=== PATIENT | male | born 1985 | race Caucasian/White ===

== ENCOUNTER 2019-07-09 10:53 | Emergency (ER) | payer SELFPAY ==
[2019-07-09 11:18] VITALS: BP 127/75; PULSE 88; RESP 16; TEMP 36.7; O2SAT 98; BMI 24.3
--- NOTE | 2019-07-09 11:43 | W.ED.GENADLT ---
HPI - General Adult General: Chief complaint: General Medical Stated complaint: Face pain Time Seen by Provider: 07/09/19 11:31 Source: patient Mode of arrival: ambulatory Limitations: no limitations History of Present Illness: HPI narrative: Patient comes in today with complaints of 2 weeks of right side sinus pain and pressure. Patient states that he had tried amoxicillin by taking 1 500 mg capsule twice a day for 3 days but did not notice any improvement. Patient appears well. Patient appears in mild to moderate discomfort. Patient denies any chronic medical problems. Patient does have a history of dental abscess that he reports is similar in pain but patient has had all his teeth removed at this time. Review of Systems General: Reports: 10 or more systems reviewed and unremarkable except in HPI and below ENMT: Reports: facial/sinus pain and other PFSH ED PFSH: Statuses (acute, chronic, etc) shown below reflect problem list status as previously entered and may not be historically accurate Social History Smoking and tobacco status: current every day smoker Physical Exam Const: COMMON NORMALS: no apparent distress and oriented x3 GENERAL APPEARANCE: cooperative HENMT: COMMON NORMALS: normocephalic, external ears normal, EAC's normal, TM's normal bilaterally and external nose normal HEAD & SCALP: normal to inspection and normocephalic FACE & SINUS: facial tenderness (right maxillary sinus area) NOSE: external nose normal GENERAL EAR: hearing not grossly impaired EXTERNAL EAR: Yes external ears normal EXTERNAL AUDITORY CANAL: EAC's normal TYMPANIC MEMBRANE: TM's normal bilaterally MOUTH: oral and palatal mucosa normal THROAT: posterior oropharynx normal Eye: COMMON NORMALS: PERRL and EOMs intact bilaterally PUPIL: Yes PERRL Neck/C-Spine: COMMON NORMALS: full ROM and no lymphadenopathy Lymph: LYMPHATIC: no lymphedema noted Chest: COMMONS NORMALS: inspection of chest normal and palpation of chest normal Resp: COMMON NORMALS: normal respiratory effort and clear to auscultation bilaterally AUSCULTATION: clear to auscultation bilaterally Cardio: COMMON NORMALS: regular rate and regular rhythm RATE: regular rate RHYTHM: regular rhythm GI: COMMON NORMALS: normal to inspection, nondistended, normoactive bowel sounds and non-tender : COMMON NORMALS: Yes no CVA tenderness BLADDER/KIDNEY EXAM: Yes no CVA tenderness Back/Pelvis: COMMON NORMALS: no CVA tenderness and thoracic and lumbar spine normal to inspection Extremity: COMMON NORMALS: normal to inspection GENERAL: No edema Neuro: COMMON NORMALS: oriented x3, moves all extremities and no focal motor deficits Psych: COMMON NORMALS: mental status grossly normal and cooperative Skin: COMMON NORMALS: no rashes or lesions noted GENERAL SKIN EXAM: no rashes or lesions noted Course Vital Signs: Vital signs: Vital Signs Temperature 98.0 F 07/09/19 11:18 Pulse Rate 88 07/09/19 11:18 Respiratory Rate 16 07/09/19 11:18 Blood Pressure 127/75 07/09/19 11:18 Pulse Oximetry 98 07/09/19 11:18 MDM - General Adult MDM Narrative: Medical decision making narrative: Patient comes in today for complaints of sinus pain. Patient appears well. Patient appears in no acute distress. Exam noted right side facial tenderness on palpation in the maxillary area. Patient has nasal mucosal edema. Posterior pharynx is pink and moist. No cervical lymphadenopathy is noted. Differential diagnosis includes migraine headache, sinusitis, otitis media, upper respiratory infection, rhinosinusitis, malingering. Patient will be treated with antibiotics for a sinus infection. Patient was also placed on Flonase for further treatment. Discussed the use of medications for pain with patient's report of understanding of care plan. Discharge Plan Discharge Patient Disposition: Home, Self-Care Clinical Impression: Rhinosinusitis Condition: Stable Prescriptions: New cefdinir 300 mg capsule 300 mg PO BID 10 Days Qty: 20 RF: 0 hydrocodone-acetaminophen 5-325 mg tablet 1 tab PO Q6H PRN (Reason: pain) Qty: 7 RF: 0 Flonase Allergy Relief 50 mcg/actuation spray,suspension 1 spray INTRANASAL BID Qty: 9.9 RF: 0 Discharge Orders: Discharge Order (Routine); Ordered 07/09/19 Ordered By: Daniel Hunter Discharge Diet: Usual diet Discharge Activity: Resume usual activity Patient Instructions: Acute Bacterial Rhinosinusitis (ED) Activity Restrictions/Additional Instructions: Drink plenty of fluids Use acetaminophen and ibuprofen to control pain Do not use more than 4 over the counter strength ibuprofen every 6 hours as needed for pain Do not use more than 2 extra strength acetaminophen every 6 hours as needed Use hydrocodone sparingly for pain Use ice or heat for further pain control Follow-up with primary care in one week for recheck Return to ER for high fever or uncontrolled pain. Discharge Date/Time: 07/09/19 11:57 Coding Level of Care Code ED Line O Scribe Operator for Rianna Brown
[2019-07-09 11:56] VITALS: BP 142/85; PULSE 75; RESP 16; O2SAT 97
== END 2019-07-09 11:57 | disposition home or self-care (01) ==
PROVIDERS: Emergency Provider Nurse Practitioner Family
DX: J32.9 Chronic sinusitis, unspecified (principal); F17.210 Nicotine dependence, cigarettes, uncomplicated
CPT/HCPCS: 99281; 99282

== ENCOUNTER 2019-07-18 15:56 | Emergency (ER) | payer SELFPAY ==
[2019-07-18 16:03] VITALS: BP 132/81; PULSE 90; RESP 16; TEMP 36.4; O2SAT 97; BMI 25.7
--- NOTE | 2019-07-18 16:18 | ED_ITS ---
Documented by User: JUANJOSE Portillo 07/18/19 16:29 HPI - General Adult General: Chief complaint: General Medical Stated complaint: FACE PAIN Time Seen by Provider: 07/18/19 16:16 Source: patient Mode of arrival: ambulatory Limitations: no limitations History of Present Illness: HPI narrative: Patient comes in today with complaints of right side sinus pain and pressure. Patient has had multiple dental abscesses in the past but is now edentulous and over the last 4 weeks he has had some persistent pain in the right side maxillary facial. Patient thought maybe he had developed a sinus infection but he states that the pain is very similar to when he had have a dental abscess. Patient appears well. Patient appears in moderate pain. Review of Systems General: Reports: 10 or more systems reviewed and unremarkable except in HPI a nd below ENMT: Reports: other (right facial pain) PFSH ED PFSH: Statuses (acute, chronic, etc) shown below reflect problem list status as previously entered and may not be historically accurate Social History Smoking and tobacco status: current every day smoker Physical Exam Const: COMMON NORMALS: no apparent distress and oriented x3 GENERAL APPEARANCE: cooperative HENMT: COMMON NORMALS: normocephalic, external ears normal, EAC's normal, TM's normal bilaterally and external nose normal HEAD & SCALP: normal to inspection and normocephalic FACE & SINUS: normal facial exam and sinus tenderness (right maxillary) NOSE: external nose normal GENERAL EAR: hearing not grossly impaired EXTERNAL EAR: Yes external ears normal EXTERNAL AUDITORY CANAL: EAC's normal TYMPANIC MEMBRANE: TM's normal bilaterally MOUTH: oral and palatal mucosa normal and other (edentulous) THROAT: posterior oropharynx normal Eye: COMMON NORMALS: PERRL and EOMs intact bilaterally PUPIL: Yes PERRL Neck/C-Spine: COMMON NORMALS: full ROM and no lymphadenopathy Lymph: LYMPHATIC: no lymphedema noted Chest: COMMONS NORMALS: inspection of chest normal and palpation of chest normal Resp: COMMON NORMALS: normal respiratory effort and clear to auscultation bilaterally AUSCULTATION: clear to auscultation bilaterally Cardio: COMMON NORMALS: regular rate and regular rhythm RATE: regular rate RHYTHM: regular rhythm GI: COMMON NORMALS: normal to inspection, nondistended, normoactive bowel sounds and non-tender : COMMON NORMALS: Yes no CVA tenderness BLADDER/KIDNEY EXAM: Yes no CVA tenderness Back/Pelvis: COMMON NORMALS: no CVA tenderness and thoracic and lumbar spine normal to inspection Extremity: COMMON NORMALS: normal to inspection GENERAL: No edema Neuro: COMMON NORMALS: oriented x3, moves all extremities and no focal motor deficits Psych: COMMON NORMALS: mental status grossly normal and cooperative Skin: COMMON NORMALS: no rashes or lesions noted GENERAL SKIN EXAM: no rashes or lesions noted Course Vital Signs: Vital signs: Vital Signs Temperature 98.3 F 07/18/19 16:27 Pulse Rate 85 07/18/19 16:27 Respiratory Rate 12 07/18/19 16:27 Blood Pressure 122/76 07/18/19 16:27 Pulse Oximetry 98 07/18/19 16:27 Discharge Plan Discharge Patient Disposition: Home, Self-Care Clinical Impression: Acute facial pain Condition: Stable Prescriptions: No Action cefdinir 300 mg capsule 300 mg PO BID 10 Days Qty: 20 RF: 0 hydrocodone-acetaminophen 5-325 mg tablet 1 tab PO Q6H PRN (Reason: pain) Qty: 7 RF: 0 Flonase Allergy Relief 50 mcg/actuation spray,suspension 1 spray INTRANASAL BID Qty: 9.9 RF: 0 Discharge Orders: Discharge Order (Routine); Ordered 07/18/19 Ordered By: Agnieszka Feliz Discharge Diet: Usual diet Discharge Activity: Increase activity as tolerated Activity Restrictions/Additional Instructions: Please follow up with primary care for continued symptoms. Sign Out Sign Out Data: Patient Sign Out occurred on 07/18/19 at 17:00. Patient's care was discussed, and care was transferred from Daniel Hunter to VLAD De La Vega. 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 Operator for Chg Fwd Exam Problem Focused Documented by User: VLAD De La Vega 07/18/19 19:22 HPI - General Adult General: Chief complaint: General Medical Stated complaint: FACE PAIN Time Seen by Provider: 07/18/19 16:16 PFSH ED PFSH: Statuses (acute, chronic, etc) shown below reflect problem list status as previously entered and may not be historically accurate Social History Smoking and tobacco status: current every day smoker Course Vital Signs: Vital signs: Vital Signs Temperature 98.3 F 07/18/19 16:27 Pulse Rate 85 07/18/19 16:27 Respiratory Rate 12 07/18/19 16:27 Blood Pressure 122/76 07/18/19 16:27 Pulse Oximetry 98 07/18/19 16:27 MDM - General Adult MDM Narrative: Medical decision making narrative: Care assumed from JUANJOSE Nice. Patient complains of pain about his right maxillary sinus. Patient has a normal physical examination-he has no periorbital swelling, does not complain of a headache, cranial nerves are intact, denies diplopia. CTs ordered from previous provider are negative. Recommend he follow-up with primary care. Imaging Data^: CT Head: Radiologist's impression: [place] [address] CT Scan Report Signed Patient: Constantine Castellanos Unit #: [id number] : 1985 Age/Sex: 34 / M ADM Date: 07/18/19 Loc: ER Room/Bed: Attending Dr: Ordering Provider/Ordering MD: Daniel Hunter NP Date of Service: 07/18/19 Procedure(s): CT head wo con* [id number] Accession Number(s): [id number] Report Number: [id number] PROCEDURE INFORMATION: Exam: CT Head Without Contrast Exam date and time: 07/18/2019 5:58 PM Age: 34 years old Clinical indication: Pain; Headache TECHNIQUE: Imaging protocol: Computed tomography of the head without contrast. Total DLP: 894.88 mGy-cm Radiation optimization: All CT scans at this facility use at least one of these dose optimization techniques: automated exposure control; mA and/or kV adjustment per patient size (includes targeted exams where dose is matched to clinical indication); or iterative reconstruction. COMPARISON: No relevant prior studies available. FINDINGS: Brain: Normal. No hemorrhage. Unremarkable white matter. No mass effect. Ventricles: Normal. No ventriculomegaly. Bones/joints: Unremarkable. No acute fracture. Sinuses: Visualized sinuses are unremarkable. No fluid levels. Mastoid air cells: Visualized mastoid air cells are well aerated. Soft tissues: Unremarkable. CT/CT head wo con* [id number] IMPRESSION: No acute intracranial abnormality. Radiation Dose CTDIVOL = (mGy): DLP = 894.88 (mGy-cm) Dictated By: Anna Woods Signed By: Anna Woods Signed Date/Time: 07/18/191834 DD/ 33 CT facial: Radiologist's impression: [place] [address] CT Scan Report Signed Patient: Constantine Castellanos Unit #: [id number] : 1985 Age/Sex: 34 / M ADM Date: 07/18/19 Loc: ER Room/Bed: Attending Dr: Ordering Provider/Ordering MD: Daniel Hnuter NP Date of Service: 07/18/19 Procedure(s): CT sinus wo con* [id number] Accession Number(s): [id number] Report Number: [id number] PROCEDURE INFORMATION: Exam: CT Maxillofacial Without Contrast Exam date and time: 07/18/2019 5:58 PM Age: 34 years old Clinical indication: Eye pain and face pain and jaw pain; Right; Additional info: Facial pain TECHNIQUE: Imaging protocol: Computed tomography images of the face without contrast. Total DLP: 701.91 mGy-cm Radiation optimization: All CT scans at this facility use at least one of these dose optimization techniques: automated exposure control; mA and/or kV adjustment per patient size (includes targeted exams where dose is matched to clinical indication); or iterative reconstruction. COMPARISON: CT facial bones wo con* [id number] 10/20/2013 12:21 AM FINDINGS: Orbits: Orbits are normal. Globes are unremarkable. Sinuses: Normal. No air-fluid levels. Bones/joints: No acute fracture. Soft tissues: Unremarkable. CT/CT sinus wo con* [id number] IMPRESSION: No acute findings. Radiation Dose CTDIVOL = (mGy): DLP = 701.91 (mGy-cm) Dictated By: Anna Woods Signed By: Anna Woods Signed Date/Time: 07/18/191835 DD/ 34 Discharge Plan Discharge Patient Disposition: Home, Self-Care Clinical Impression: Acute facial pain Condition: Stable Prescriptions: No Action cefdinir 300 mg capsule 300 mg PO BID 10 Days Qty: 20 RF: 0 hydrocodone-acetaminophen 5-325 mg tablet 1 tab PO Q6H PRN (Reason: pain) Qty: 7 RF: 0 Flonase Allergy Relief 50 mcg/actuation spray,suspension 1 spray INTRANASAL BID Qty: 9.9 RF: 0 Discharge Orders: Discharge Order (Routine); Ordered 07/18/19 Ordered By: Agnieszka Feliz Discharge Diet: Usual diet Discharge Activity: Increase activity as tolerated Activity Restrictions/Additional Instructions: Please follow up with primary care for continued symptoms. Sign Out Sign Out Data: Patient Sign Out occurred on 07/18/19 at 17:00. Patient's care was discussed, and care was transferred from Daniel Hunter to VLAD De La Vega. 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 Operator for Chg Fwd Exam Problem Focused
--- NOTE | 2019-07-18 16:24 | CTR_ITS ---
PROCEDURE INFORMATION: Exam: CT Head Without Contrast Exam date and time: 07/18/2019 5:58 PM Age: 34 years old Clinical indication: Pain; Headache TECHNIQUE: Imaging protocol: Computed tomography of the head without contrast. Total DLP: 894.88 mGy-cm Radiation optimization: All CT scans at this facility use at least one of these dose optimization techniques: automated exposure control; mA and/or kV adjustment per patient size (includes targeted exams where dose is matched to clinical indication); or iterative reconstruction. COMPARISON: No relevant prior studies available. FINDINGS: Brain: Normal. No hemorrhage. Unremarkable white matter. No mass effect. Ventricles: Normal. No ventriculomegaly. Bones/joints: Unremarkable. No acute fracture. Sinuses: Visualized sinuses are unremarkable. No fluid levels. Mastoid air cells: Visualized mastoid air cells are well aerated. Soft tissues: Unremarkable. CT/CT head wo con* [id number] IMPRESSION: No acute intracranial abnormality. Radiation Dose CTDIVOL = (mGy): DLP = 894.88 (mGy-cm)
[2019-07-18 16:27] VITALS: BP 122/76; PULSE 85; RESP 12; TEMP 36.8; O2SAT 98
[2019-07-18 19:20] VITALS: BP 117/89; PULSE 77; RESP 16; TEMP 36.6; O2SAT 96
== END 2019-07-18 19:04 | disposition home or self-care (01) ==
PROVIDERS: Emergency Provider Physician Assistant
DX: R51 Headache (principal); F17.200 Nicotine dependence, unspecified, uncomplicated
CPT/HCPCS: 70450; 70486; 99281; 99282; A9270

== ENCOUNTER → 2020-09-17 09:39 | Outpatient (BNVA) | payer SELFPAY | PROVIDERS: Visit Provider Nurse Practitioner Family | DX: Z20.822 Contact with and (suspected) exposure to COVID-19 (principal) | CPT/HCPCS: 87635 ==

== ENCOUNTER 2022-07-14 08:52 | Emergency (ER) | payer SELFPAY ==
--- NOTE | 2022-07-14 09:05 | XR_ITS ---
WS: [id number] PORTABLE CHEST HISTORY: Chest pain. COMPARISON: None available. There is very minimal interstitial prominence in the RIGHT lower lobe. May be an area of mild pneumon itis. Otherwise lungs are clear. No pleural effusion or pneumothorax. Cardiac size: Normal. Mediastinum/Aorta: Normal mediastinum. No osseous abnormality seen. XR/XR chest 1V portable [id number] IMPRESSION: Very minimal interstitial prominence at the RIGHT lung base. May be an area of developing pneumonitis.
[2022-07-14 09:09] VITALS: BP 108/82; PULSE 101; RESP 18; TEMP 36.4; O2SAT 93
--- NOTE | 2022-07-14 09:10 | ECG_ITS ---
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 Measurements Intervals [place] Rate: 102 P: 47 NC: 149 QRS: 7 QRSD: 87 T: 37 QT: 312 QTc: 407 Interpretive Statements SINUS TACHYCARDIA POSSIBLE LEFT ATRIAL ENLARGEMENT [-0.1mV P-WAVE IN V1/V2] ABNORMAL RHYTHM ECG No previous ECG available for comparison Electronically Signed On 07-14-2022 12:54:20 FACILITY SERVICE MANAGER by Amber Mccartney M.D. [id number]
[2022-07-14 09:19] VITALS: BP 108/82; PULSE 100; RESP 25; O2SAT 94
--- NOTE | 2022-07-14 09:19 | W.ED.CHESTPA ---
Documented by User: VLAD Galloway 07/15/22 12:09 HPI - Chest Pain General: Chief Complaint: Chest Pain Stated Complaint: cp Time Seen by Provider: 07/14/22 09:05 History of Present Illness: Patient is a 37-year-old male that comes to the ED with chest pain. Symptoms started around 3 AM this morning. He rates the pain a 10 out of 10 and he describes it as sharp stabbing pain in the left side of chest. Pain radiates into the left shoulder. He has a history of acid reflux but pain does not feel like acid reflux. Any movement with left arm or taking a deep breath causes worsening pain. Endorses shortness of breath. 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 Denies any fevers, nausea/vomiting, abdominal pain, bladder or bowel symptoms. Denies any cardiac history. Associated symptoms: Reports dyspnea; Deny abdominal pain, fever(s), nausea, palpitations or vomiting Review of Systems Const: Denies: fever(s), chills or fatigue Eyes: Denies: change in vision or eye discomfort ENMT: Denies: throat pain, odynophagia, nasal discharge or nasal congestion Card: Reports: chest pain; Denies: palpitations, edema, swelling of feet/ankles, dyspnea on exertion or orthopnea Resp: Reports: dyspnea and pain on inspiration; Denies: productive cough or non-productive cough GI: Denies: abdominal pain, nausea, vomiting, diarrhea, constipation or hematochezia : Denies: flank pain, difficulty urinating, dysuria or hematuria Musc: Denies: neck pain, back pain or extremity swelling Skin/Breast: Denies: rash or new lesions Neuro: Denies: headache(s), numbness in extremities or weakness in extremities PFS ED PFSH: Medical History Acid reflux Surgical History No pertinent past surgical history Social History Smoking and tobacco status: light tobacco smoker cigarettes Alcohol intake: current Alcohol intake frequency: holidays/special occasions only Physical Exam Const: COMMON NORMALS: patient oriented x3 and alert GENERAL APPEARANCE: cooperative HENMT: COMMON NORMALS: normocephalic HEAD & SCALP: normocephalic MOUTH: Normal oral and palatal mucosa present THROAT: posterior oropharynx normal and uvula midline Neck/C-Spine: COMMON NORMALS: supple GENERAL: Yes normal visual inspection Chest: CHEST: Yes tenderness rib left mid-clavicular line involving the 8th rib and involving the 9th rib and Yes other (Left lower chest wall tenderness) Resp: COMMON NORMALS: normal respiratory effort, No retractions, No use of accessory muscles and clear to auscultation bilaterally AUSCULTATION: clear to auscultation bilaterally Cardio: COMMON NORMALS: regular rate, regular rhythm, S1 normal heart sound present, S2 normal heart sound present, No gallops present (Cardio), No clicks present (Cardio), No murmurs present (Cardio) and Peripheral pulses 2+ throughout RATE: regular rate RHYTHM: regular rhythm HEART SOUNDS: S1 normal heart sound present and S2 normal heart sound present PERIPHERAL PULSES: Peripheral pulses 2+ throughout GI: COMMON NORMALS: Normal to inspection, nondistended, normoactive bowel sounds present, Soft to palpation, non-tender and no masses PALPATION: Yes Soft to palpation : COMMON NORMALS: Yes no CVA tenderness BLADDER/KIDNEY EXAM: Yes no CVA tenderness Back/Pelvis: COMMON NORMALS: no CVA tenderness Extremity: COMMON NORMALS: normal to inspection Neuro: COMMON NORMALS: patient oriented x3 SENSORIUM/ORIENTATION: Yes alert GAIT: Yes Normal gait present Skin: GENERAL SKIN EXAM: dry skin Course Vital Signs: Vital signs: Vital Signs Temperature 97.6 F 07/14/22 09:09 Pulse Rate 87 07/14/22 11:00 Respiratory Rate 21 H 07/14/22 11:00 Blood Pressure 115/88 07/14/22 11:00 Pulse Oximetry 96 07/14/22 11:00 Oxygen Delivery Me thod 07/14/22 09:09 MDM - Chest Pain Medical Decision Making Patient is a 37-year-old male comes to the ED with chest pain. 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 Pain worsens with any movement of left arm. Vitals are stable. Patient appears nontoxic in no acute distress or pain. He does have some eighth and ninth left rib and chest wall tenderness. Rest of exam is benign. CBC and CMP are unremarkable. Troponins negative. EKG shows sinus tachycardia [address] segment elevation or depression seen. Chest x-ray shows an area of some developing pneumonitis in right lung base. Patient was stable for discharge home and diagnosed with chest wall pain and pneumonitis. He was discharged home with a prescription for a Z-Asad, Celebrex and a muscle relaxer. Told to follow-up with PCP in the next week for reevaluation. Return to ED precautions given. Patient understood and agreed with plan. Lab Data I reviewed the patient's lab results. 07/14/22 09:13 07/14/22 09:13 Radiology Impressions Chest X-Ray 07/14/22 09:05 IMPRESSION: Very minimal interstitial prominence at the RIGHT lung base. May be an area of developing pneumonitis. Laboratory Results WBC 7.7 10^3/uL (4.0-10.0) 07/14/22 09:13 RBC 4.35 10^6/uL (4.1-5.3) 07/14/22 09:13 Hgb 16.6 g/dL (11.7-16.6) 07/14/22 09:13 Hct 47.6 % (42.0-52.0) 07/14/22 09:13 MCV 109.4 fl (80-94) H 07/14/22 09:13 MCH 38.2 pg (28.0-34.0) H 07/14/22 09:13 MCHC 34.9 g/dL (30.0-36.0) 07/14/22 09:13 RDW 13.2 % (12.1-15.1) 07/14/22 09:13 Plt Count 215 10^3/cmm (130-400) 07/14/22 09:13 MPV 10.5 fL (7.4-10.4) H 07/14/22 09:13 Neut % (Auto) 68.3 % 07/14/22 09:13 Lymph % (Auto) 21.1 % 07/14/22 09:13 [place] % (Auto) 9.0 % 07/14/22 09:13 Eos % (Auto) 0.8 % 07/14/22 09:13 Baso % (Auto) 0.7 % 07/14/22 09:13 Neut # (Auto) 5.25 10^3/uL (1.8-7.7) 07/14/22 09:13 Lymph # (Auto) 1.6 10^3/uL (0.8-4.8) 07/14/22 09:13 [place] # (Auto) 0.7 10^3/uL (0.2-0.9) 07/14/22 09:13 Eos # (Auto) 0.1 10^3/uL (0.0-0.8) 07/14/22 09:13 Baso # (Auto) 0.1 10^3/uL (0.0-0.1) 07/14/22 09:13 Nucleated RBC % (auto) 0 % 07/14/22 09:13 Nucleated RBCs # 0.0 /100WBC 07/14/22 09:13 Sodium 142 mmol/L (136-145) 07/14/22 09:13 Potassium 4.2 mmol/L (3.5-5.1) 07/14/22 09:13 Chloride 104 mmol/L (98-107) 07/14/22 09:13 Carbon Dioxide 21 mmol/L (22-29) L 07/14/22 09:13 Anion Gap 21.2 (5-19) H 07/14/22 09:13 BUN 6 mg/dL (6-20) 07/14/22 09:13 Creatinine 0.6 mg/dL (0.7-1.2) L 07/14/22 09:13 GFR Calculation 150.0 mL/min (90-130) H 07/14/22 09:13 Glucose 113 mg/dL (65-115) 07/14/22 09:13 Calculated Osmolality 292 mOsm/kg (285-295) 07/14/22 09:13 Calcium 9.0 mg/dL (8.5-10.5) 07/14/22 09:13 Total Bilirubin 0.4 mg/dL (0.15-1.2) 07/14/22 09:13 AST 59 U/L (0-40) H 07/14/22 09:13 ALT 76 U/L (0-41) H 07/14/22 09:13 Alkaline Phosphatase 96 U/L (40-130) 07/14/22 09:13 Troponin T Baseline 6 ng/L (0-15) 07/14/22 09:13 Troponin T 120 Minute 6.00 ng/L (0-15) 07/14/22 10:58 Delta Troponin T 0 ABS# (0-10) 07/14/22 10:58 Total Protein 8.0 g/dL (6.6-8.7) 07/14/22 09:13 Albumin 4.5 g/dL (3.5-5.2) 07/14/22 09:13 Globulin 3.5 g/dL (1.3-4.6) 07/14/22 09:13 EKG Data EKG 1: EKG interpretation date: 07/14/22 Interpretation: Sinus tachycardia, [address] segment elevation or depression seen. Discharge Plan Discharge Patient Disposition: Home Clinical Impression: Chest wall pain, Pneumonitis Condition: Stable Prescriptions: New azithromycin 250 mg tablet See Rx Instructions .ROUTE .COMPLEX Qty: 6 0RF Rx Instructions: For 250 mg dose pack: take 500 mg today (day 1), then 250 mg for 4 days (days 2-5) celecoxib 100 mg capsule 100 mg PO BID PRN (Reason: pain) Qty: 20 0RF cyclobenzaprine 10 mg tablet 10 mg PO BID PRN (Reason: muscle spasm) Qty: 20 0RF No Action Nexium 20 mg Capsule,Delayed Release(Dr/Ec) 20 mg PO DAILY PRN (Reason: Heartburn) Discharge Orders: Discharge ED (Routine); Ordered 07/14/22 Ordered By: Pepe Bautista Discharge Diet: Regular Discharge Activity: Increase activity as tolerated Activity Restrictions/Additional Instructions: Follow-up with medical provider as directed in the next 5 to 7 days for reevaluation. Take medications as prescribed. Return to the ER or your medical provider if condition worsens. Please read and understand discharge instructions. Thank you for choosing [facility] [place] for your healthcare needs today. Please realize this is an emergency room and that we are providing you with a medical screening exam and this may not be complete and all inclusive of all the testing and or work up that you may need to determine your ailment or severity of your illness. It is very important that you follow up as instructed or that you return to the Emergency Department should you have concerns or if your condition changes or worsens in any way. Coding Level of Care Code ED Community Health Worker for Chg Fwd Exam Comprehensive Documented by User: Joe Forrest DO 07/15/22 14:09 HPI - Chest Pain General: Chief Complaint: Chest Pain Stated Complaint: cp Time Seen by Provider: 07/14/22 09:05 [facility] ED PFSH: Medical History Acid reflux Surgical History No pertinent past surgical history Social History Smoking and tobacco status: light tobacco smoker cigarettes Alcohol intake: current Alcohol intake frequency: holidays/special occasions only Course Vital Signs: Vital signs: Vital Signs Temperature 97.6 F 07/14/22 09:09 Pulse Rate 87 07/14/22 11:00 Respiratory Rate 21 H 07/14/22 11:00 Blood Pressure 115/88 07/14/22 11:00 Pulse Oximetry 96 07/14/22 11:00 Oxygen Delivery Me thod 07/14/22 09:09 MDM - Chest Pain Medical Decision Making Patient is a 37-year-old male comes to the ED with chest pain. 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 Pain worsens with any movement of left arm. Vitals are stable. Patient appears nontoxic in no acute distress or pain. He does have some eighth and ninth left rib and chest wall tenderness. Rest of exam is benign. CBC and CMP are unremarkable. Troponins negative. EKG shows sinus tachycardia [address] segment elevation or depression seen. Chest x-ray shows an area of some developing pneumonitis in right lung base. Patient was stable for discharge home and diagnosed with chest wall pain and pneumonitis. He was discharged home with a prescription for a Z-Asad, Celebrex and a muscle relaxer. Told to follow-up with PCP in the next week for reevaluation. Return to ED precautions given. Patient understood and agreed with plan. Chart reviewed and patient discussed with midlevel. Agree with assessment and plan. Lab Data 07/14/22 09:13 07/14/22 09:13 Radiology Impressions Chest X-Ray 07/14/22 09:05 IMPRESSION: Very minimal interstitial prominence at the RIGHT lung base. May be an area of developing pneumonitis. Laboratory Results WBC 7.7 10^3/uL (4.0-10.0) 07/14/22 09:13 RBC 4.35 10^6/uL (4.1-5.3) 07/14/22 09:13 Hgb 16.6 g/dL (11.7-16.6) 07/14/22 09:13 Hct 47.6 % (42.0-52.0) 07/14/22 09:13 MCV 109.4 fl (80-94) H 07/14/22 09:13 MCH 38.2 pg (28.0-34.0) H 07/14/22 09:13 MCHC 34.9 g/dL (30.0-36.0) 07/14/22 09:13 RDW 13.2 % (12.1-15.1) 07/14/22 09:13 Plt Count 215 10^3/cmm (130-400) 07/14/22 09:13 MPV 10.5 fL (7.4-10.4) H 07/14/22 09:13 Neut % (Auto) 68.3 % 07/14/22 09:13 Lymph % (Auto) 21.1 % 07/14/22 09:13 [place] % (Auto) 9.0 % 07/14/22 09:13 Eos % (Auto) 0.8 % 07/14/22 09:13 Baso % (Auto) 0.7 % 07/14/22 09:13 Neut # (Auto) 5.25 10^3/uL (1.8-7.7) 07/14/22 09:13 Lymph # (Auto) 1.6 10^3/uL (0.8-4.8) 07/14/22 09:13 [place] # (Auto) 0.7 10^3/uL (0.2-0.9) 07/14/22 09:13 Eos # (Auto) 0.1 10^3/uL (0.0-0.8) 07/14/22 09:13 Baso # (Auto) 0.1 10^3/uL (0.0-0.1) 07/14/22 09:13 Nucleated RBC % (auto) 0 % 07/14/22 09:13 Nucleated RBCs # 0.0 /100WBC 07/14/22 09:13 Sodium 142 mmol/L (136-145) 07/14/22 09:13 Potassium 4.2 mmol/L (3.5-5.1) 07/14/22 09:13 Chloride 104 mmol/L (98-107) 07/14/22 09:13 Carbon Dioxide 21 mmol/L (22-29) L 07/14/22 09:13 Anion Gap 21.2 (5-19) H 07/14/22 09:13 BUN 6 mg/dL (6-20) 07/14/22 09:13 Creatinine 0.6 mg/dL (0.7-1.2) L 07/14/22 09:13 GFR Calculation 150.0 mL/min (90-130) H 07/14/22 09:13 Glucose 113 mg/dL (65-115) 07/14/22 09:13 Calculated Osmolality 292 mOsm/kg (285-295) 07/14/22 09:13 Calcium 9.0 mg/dL (8.5-10.5) 07/14/22 09:13 Total Bilirubin 0.4 mg/dL (0.15-1.2) 07/14/22 09:13 AST 59 U/L (0-40) H 07/14/22 09:13 ALT 76 U/L (0-41) H 07/14/22 09:13 Alkaline Phosphatase 96 U/L (40-130) 07/14/22 09:13 Troponin T Baseline 6 ng/L (0-15) 07/14/22 09:13 Troponin T 120 Minute 6.00 ng/L (0-15) 07/14/22 10:58 Delta Troponin T 0 ABS# (0-10) 07/14/22 10:58 Total Protein 8.0 g/dL (6.6-8.7) 07/14/22 09:13 Albumin 4.5 g/dL (3.5-5.2) 07/14/22 09:13 Globulin 3.5 g/dL (1.3-4.6) 07/14/22 09:13 Discharge Plan Discharge Patient Disposition: Home Clinical Impression: Chest wall pain, Pneumonitis Condition: Stable Prescriptions: New azithromycin 250 mg tablet See Rx Instructions .ROUTE .COMPLEX Qty: 6 0RF Rx Instructions: For 250 mg dose pack: take 500 mg today (day 1), then 250 mg for 4 days (days 2-5) celecoxib 100 mg capsule 100 mg PO BID PRN (Reason: pain) Qty: 20 0RF cyclobenzaprine 10 mg tablet 10 mg PO BID PRN (Reason: muscle spasm) Qty: 20 0RF No Action Nexium 20 mg Capsule,Delayed Release(Dr/Ec) 20 mg PO DAILY PRN (Reason: Heartburn) Discharge Orders: Discharge ED (Routine); Ordered 07/14/22 Ordered By: Pepe Bautista Discharge Diet: Regular Discharge Activity: Increase activity as tolerated Activity Restrictions/Additional Instructions: Follow-up with medical provider as directed in the next 5 to 7 days for reevaluation. Take medications as prescribed. Return to the ER or your medical provider if condition worsens. Please read and understand discharge instructions. Thank you for choosing [facility] [place] for your healthcare needs today. Please realize this is an emergency room and that we are providing you with a medical screening exam and this may not be complete and all inclusive of all the testing and or work up that you may need to determine your ailment or severity of your illness. It is very important that you follow up as instructed or that you return to the Emergency Department should you have concerns or if your condition changes or worsens in any way. Coding Level of Care Code ED Community Health Worker for Rianna Brown Exam Comprehensive
[2022-07-14 09:24] LABS: Basophils # 0.1 10^3/uL (0.0-0.1); Basophils % 0.7 %; Eosinophils # 0.1 10^3/uL (0.0-0.8); Eosinophils % 0.8 %; Hematocrit 47.6 % (42.0-52.0); Hemoglobin 16.6 g/dL (11.7-16.6); Lymphocytes # 1.6 10^3/uL (0.8-4.8); Lymphocytes % 21.1 %; Mean Corpuscular HGB Conc 34.9 g/dL (30.0-36.0); Mean Corpuscular Hemoglobin 38.2 pg (28.0-34.0); Mean Corpuscular Volume 109.4 fl (80-94); Mean Platelet Volume 10.5 fL (7.4-10.4); Monocytes # 0.7 10^3/uL (0.2-0.9); Neutrophils # 5.25 10^3/uL (1.8-7.7); Neutrophils % 68.3 %; Nucleated Red Blood Cells % 0 %; Platelet Count 215 10^3/cmm (130-400); Red Blood Count 4.35 10^6/uL (4.1-5.3); Red Cell Distribution Width 13.2 % (12.1-15.1); White Blood Count 7.7 10^3/uL (4.0-10.0)
[2022-07-14] MEDS: ondansetron 2 mg/ML SDV 2 mL 4 MG IVP (09:30)
[2022-07-14] MEDS: aspirin 81 mg Chew Tablet 324 MG PO (09:30)
[2022-07-14 09:31] VITALS: RESP 16; O2SAT 96
[2022-07-14] MEDS: morphine 4 mg/mL SDV 1 mL IVP (09:31)
--- NOTE | 2022-07-14 09:36 | PC.NURSE ---
PT PLACED ON CONTINUOUS NIBP, SPO2, AND CM
[2022-07-14 09:51] LABS: Troponin(5th) Baseline 6 ng/L (0-15)
[2022-07-14 09:52] LABS: Alanine Aminotransferase 76 U/L (0-41); Albumin Level 4.5 g/dL (3.5-5.2); Alkaline Phosphatase 96 U/L (40-130); Anion Gap 21.2 (5-19); Aspartate Amino Transferase 59 U/L (0-40); Blood Urea Nitrogen 6 mg/dL (6-20); Carbon Dioxide 21 mmol/L (22-29); Chloride 104 mmol/L (98-107); Globulin 3.5 g/dL (1.3-4.6); Glucose 113 mg/dL (65-115); Osmolality Calculated 292 mOsm/kg (285-295); Potassium 4.2 mmol/L (3.5-5.1); Sodium 142 mmol/L (136-145); Total Bilirubin 0.4 mg/dL (0.15-1.2)
[2022-07-14 10:30] VITALS: BP 132/93; PULSE 88; RESP 17; O2SAT 94
[2022-07-14 11:00] VITALS: BP 115/88; PULSE 87; RESP 21; O2SAT 96
[2022-07-14] MEDS: lidocaine 2% viscous 15 ML, aluminum-mag hydrox-simethicon 30 ML, sucralfate oral liq 1 GM PO (11:01)
--- NOTE | 2022-07-14 11:08 | ECG_ITS ---
[facility] Test Date: 2022-07-14 Pat Name: Constantine Castellanos Department: Room: Gender: Male [employer] Work[employer]: : 1985 Requested By: Pepe Bautista Order Number: [id number] Yin MD: Amber Mccartney M.D. Measurements Intervals [place] Rate: 77 P: 38 NH: 157 QRS: 8 QRSD: 88 T: 30 QT: 334 QTc: 380 Interpretive Statements SINUS RHYTHM Compared to ECG 07/14/2022 09:10:30 Sinus tachycardia no longer present Electronically Signed On 07-14-2022 12:55:22 ORCHESTRA LEADER by Amber Mccartney M.D. [email or web address]
[2022-07-14 11:44] LABS: Troponin 5 2HR Delta 0 ABS# (0-10)
[2022-07-14] MEDS: ketorolac 30 mg/mL INJ IVP (11:55)
== END 2022-07-14 12:02 | disposition home or self-care (01) ==
PROVIDERS: Emergency Provider Physician Assistant
DX: R07.89 Other chest pain (principal); J18.9 Pneumonia, unspecified organism
CPT/HCPCS: 36415; 71045; 80053; 84484; 85025; 93005; 96374; 96375; 99285; J1885; J2270; J2405

== ENCOUNTER 2022-10-23 04:35 | Emergency (ER) | payer SELFPAY ==
[2022-10-23 04:36] VITALS: BP 108/79; PULSE 92; RESP 18; TEMP 36.6; O2SAT 95; BMI 26.9
[2022-10-23 04:48] VITALS: BP 107/71; PULSE 89; RESP 16; O2SAT 96
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
[2022-10-23 05:27] LABS: Basophils # 0.1 10^3/uL (0.0-0.1); Basophils % 0.7 %; Eosinophils % 0.1 %; Hematocrit 44.9 % (42.0-52.0); Hemoglobin 15.5 g/dL (11.7-16.6); Lymphocytes # 1.5 10^3/uL (0.8-4.8); Lymphocytes % 13.7 %; Mean Corpuscular HGB Conc 34.5 g/dL (30.0-36.0); Mean Corpuscular Hemoglobin 36.6 pg (28.0-34.0); Mean Corpuscular Volume 106.1 fl (80-94); Mean Platelet Volume 10.1 fL (7.4-10.4); Monocytes # 0.7 10^3/uL (0.2-0.9); Monocytes % 6.8 %; Neutrophils # 8.48 10^3/uL (1.8-7.7); Neutrophils % 78.3 %; Nucleated Red Blood Cells % 0 %; Platelet Count 198 10^3/cmm (130-400); Red Blood Count 4.23 10^6/uL (4.1-5.3); Red Cell Distribution Width 12.9 % (12.1-15.1); White Blood Count 10.8 10^3/uL (4.0-10.0)
[2022-10-23 05:40] VITALS: BP 129/81; PULSE 92; O2SAT 98
[2022-10-23 06:20] LABS: Urine Appearance Cloudy (CLEAR); Urine Color Dark Yellow (Yellow); pH Urine 5 (5-7)
[2022-10-23 06:21] LABS: Add Urine Microscopic? YES; Bilirubin Urine Neg (Negative); Blood Urine Neg (Negative); Glucose Urine UA Norm (Normal); Ketones Urine 1+ (Negative); Leukocyte Esterase Urine Negative (Negative); Nitrate Urine Negative (Negative); Protein Urine Trace (Negative); Urobilinogen Urine Norm (Negative)
[2022-10-23 06:26] LABS: Add Urine Culture? No; Amorphous Sediment Urine 2+ /hpf; Bacteria Urine TRACE /hpf
[2022-10-23 06:27] LABS: Alanine Aminotransferase 61 U/L (0-41); Albumin Level 4.4 g/dL (3.5-5.2); Alcohol Level 159 mg/dL (0-10); Alkaline Phosphatase 103 U/L (40-130); Anion Gap 18.4 (5-19); Aspartate Amino Transferase 69 U/L (0-40); Blood Urea Nitrogen 9 mg/dL (6-20); Calcium 8.7 mg/dL (8.5-10.5); Carbon Dioxide 24 mmol/L (22-29); Chloride 104 mmol/L (98-107); Globulin 3.5 g/dL (1.3-4.6); Glucose 94 mg/dL (65-115); Osmolality Calculated 294 mOsm/kg (285-295); Potassium 3.4 mmol/L (3.5-5.1); Sodium 143 mmol/L (136-145); Total Bilirubin 0.3 mg/dL (0.15-1.2); Total Protein 7.9 g/dL (6.6-8.7)
[2022-10-23 06:30] VITALS: BP 123/81; PULSE 87; RESP 16; O2SAT 96
[2022-10-23 06:33] LABS: Amphetamines Screen Urine Negative (Negative); Barbiturates Screen Urine Negative (Negative); Benzodiazepines Screen Urine Negative (Negative); Cocaine Screen Urine Negative (Negative); Opiate Screen Urine Negative (Negative); PCP Screen Urine Negative (Negative); THC Screen Urine Positive (Negative)
--- NOTE | 2022-10-30 13:48 | DCPLANNER ---
tour manager called patient due to no primary care physician - no answer at this time.
== END 2022-10-23 06:48 | disposition home or self-care (01) ==
PROVIDERS: Emergency Provider Emergency Medicine
DX: T68.XXXA Hypothermia, initial encounter (principal); X31.XXXA Exposure to excessive natural cold, initial encounter; F17.210 Nicotine dependence, cigarettes, uncomplicated
CPT/HCPCS: 71045; 80053; 80306; 80307; 81001; 85025; 99284

== ENCOUNTER 2023-07-06 13:01 | Outpatient (CLI) | payer OTHER, SELFPAY ==
--- NOTE | 2023-07-06 14:06 | USCV_ITS ---
Constantine Castellanos Age: 38 Gender: M : 1985 Exam Date: 07/06/2023 15:04 Ordering Phys: Russell Crump MD Technologist: Emery Muir [place] [facility] [place]: LE Pain RIGHT LEFT Brachial 110.00 mmHg Brachial 113.00 mmHg Pressure (mmHg) Waveform Pressure (mmHg) Waveform 157.00 HOME AIDE 155.00 143.00 DPA 151.00 1.39 Ankle/Brachial Index 1.37 115.00 Pre-Exercise Toe Pressure 103.00 1.02 Pre-Exercise Toe/Brachial Index 0.91 FINDINGS Resting KAUSHAL 1.39 on the right side and 1.37 on the left Resting TBI 1.02 on the right side and 0.91 on the left CONCLUSIONS Normal resting ABIs and TBIs bilaterally No evidence of any significant arterial obstruction, based on the above findings. Dr Soham Cool MD [facility] (Electronically Signed) Final Date: 07 July 2023 12:03 S
== END 2023-07-06 13:02 | disposition home or self-care (01) ==
PROVIDERS: PCP Family Medicine; Visit Provider Family Medicine
DX: M79.605 Pain in left leg (principal); M79.604 Pain in right leg
CPT/HCPCS: 93922